=== PATIENT | female | born 1955 | race Hispanic/Latino ===

== ENCOUNTER 2019-08-07 10:47 | Outpatient (CLI) | payer OTHER ==
--- NOTE | 2019-08-07 11:15 | MMO ---
Right Breast MAMMO Unilat Diag [facility] RT+FRANK[facility]. CLINICAL HISTORY: Patient is 64 years old and is seen for diagnostic exam. The patient has no family history of breast cancer. The patient has no personal history of cancer. VIEWS: The views performed were: right craniocaudal with tomosynthesis; right mediolateral oblique with tomosynthesis; and right mediolateral with tomosynthesis. FILMS COMPARED: The present examination has been compared to prior imaging studies performed at [facility] on 07/24/2019, and at [facility] on 09/15/2015, 11/23/2016 and 08/07/2019. This study has been interpreted with the assistance of computer-aided detection. MAMMOGRAM FINDINGS: The breast is heterogeneously dense, which could obscure a lesion on mammography. There is an asymmetry seen in the right breast. This is located at the 12 o'clock position and on additional imaging appears similar to prior mammography. Focused ultrasound is unremarkable as well. There are no suspicious masses, suspicious calcifications, or new areas of architectural distortion. IMPRESSION: THERE IS NO MAMMOGRAPHIC EVIDENCE OF MALIGNANCY. A ROUTINE FOLLOW-UP MAMMOGRAM IN 1 YEAR IS RECOMMENDED. THE RESULTS OF THIS EXAM WERE SENT TO THE PATIENT. ACR BI-RADS Category 2 - Benign finding MAMMOGRAPHY NOTE: 1. A negative mammogram report should not delay a biopsy if a dominant of clinically suspicious mass is present. 2. Approximately 10% to 15% of breast cancers are not detected by mammography. 3. Adenosis and dense breasts may obscure an underlying neoplasm. Reported by: CHACORTA COMER MD Electonically Signed: [id number]
--- NOTE | 2019-08-07 14:14 | ULT ---
FOCUSED ULTRASOUND OF THE RIGHT BREAST: 08/07/2019 HISTORY: Asymmetric density noted at the 12 o'clock position of the right breast. FINDINGS: Focused ultrasound at the 11 o'clock, 12 o'clock, and 1 o'clock positions of the right breast demonst rates no abnormal mass lesion or shadowing. Islands of dense breast tissue are noted, correlating in size and location with the findings on mammography. No concerning findings. IMPRESSION: BI-RADS 2 - benign findings. Recommend annual screening mammography. POS: OFF
== END 2019-08-07 10:48 | disposition home or self-care (01) ==
LOC: BICMAMMO 10:47
PROVIDERS: ATTEND Obstetrics & Gynecology
DX: N63.10 Unspecified lump in the right breast, unspecified quadrant (principal)
CPT/HCPCS: G0279

== ENCOUNTER 2021-02-07 21:39 | Emergency (ER) | payer OTHER ==
[2021-02-07 22:21] LABS: Hemoglobin 13.3 g/dL (12.0-16.0); Mean Corpuscular HGB CONC 33.6 g/dL (32.0-36.0); Mean Corpuscular Hemoglobin 33.2 pg (27.0-31.0); Mean Corpuscular Volume 98.7 fL (78.0-98.0); Mean Platelet Volume 10.6 fL (7.4-10.4); Platelet Count 118 thou/uL (130-400); RBC Distribution Width 11.6 % (11.5-14.5); Red Blood Cell (RBC) Count 4.01 mill/uL (4.20-5.40); White Blood Cell (WBC) Count 6.6 thou/uL (4.8-10.8)
[2021-02-07 22:24] LABS: Fibrinogen 311 mg/dL (253-463)
[2021-02-07 22:25] LABS: PTT 24.7 sec (22.9-36.1); Prothrombin Time 13.3 sec (12.0-14.7)
[2021-02-07] MEDS ORDERED: Morphine 4 MG/ML VIAL ONE (22:25)
[2021-02-07 22:29] LABS: FSP-Qualitative Normal (Normal)
[2021-02-07 22:30] LABS: D-Dimer Test Less than 0.27 *mcg/mL (0.27-0.43); Platelet Count 118 thou/uL (130-400)
[2021-02-07 22:39] LABS: ALT (SGPT) 20 U/L (8-55); AST (SGOT) 27 U/L (5-34); Alkaline Phosphatase 79 U/L (40-110); Anion Gap 13 mmol/L (10-20); BUN (Urea Nitrogen) 11 mg/dL (9.8-20.1); Bilirubin, Total 0.4 mg/dL (0.2-1.2); CK (CPK) 308 U/L (29-168); Calc. Creatinine Clearance 0 mL/min (70-130); Carbon Dioxide 28 mmol/L (23-31); Chloride 106 mmol/L (98-107); Globulin 2.9 g/dL (2.4-3.5); Glucose 106 mg/dL (80-115); Potassium 3.8 mmol/L (3.5-5.1); Protein, Total 6.9 g/dL (5.8-8.1); Sodium 143 mmol/L (136-145)
[2021-02-07 23:14] LABS: #Basophils 0.1 thou/uL (0.0-0.2); #Eosinphils 0.1 thou/uL (0.0-0.7); #Lymphocytes 2.8 thou/uL (1.20-3.40); #Monocytes 0.5 thou/uL (0.11-0.59); #Neutrophils 3.2 thou/uL (1.40-6.50); %Eosinophils 1.4 % (0.0-10.0); %Lymphocytes 41.7 % (21.0-51.0); %Monocytes 7.1 % (0.0-10.0); %Neutrophils 48.8 % (42.0-75.0); Platelet Morphology Comment Appears Decreased; RBC Morphology Normal
== END 2021-02-08 01:30 | disposition home or self-care (01) ==
LOC: ERS 21:39
DX: T63.061A Toxic effect of venom of other North and South American snake, accidental (unintentional), initial encounter (principal); I10 Essential (primary) hypertension
CPT/HCPCS: 36415; 80053; 82550; 85025; 85049; 85300; 85362; 85379; 85384; 85610; 85730; 96374; J2270

== ENCOUNTER 2025-08-19 19:54 | Emergency (ER) | payer MEDICARE, BC ==
[2025-08-19] MEDS ORDERED: Ondansetron PF 4 MG/2 ML Vial ONE ×2 (21:54)
[2025-08-19] MEDS ORDERED: KETAMINE 100 MG/ML (5ML VIAL) ONE (22:41)
== END 2025-08-20 00:08 | disposition home or self-care (01) ==
LOC: ERS 19:54
DX: S52.531A Colles' fracture of right radius, initial encounter for closed fracture (principal); W10.9XXA Fall (on) (from) unspecified stairs and steps, initial encounter
CPT/HCPCS: 25605; 73100; 73110; 96374; 96375; 99152; 99283; J2405; J3010

== ENCOUNTER 2025-09-03 06:41 | Day surgery (SDC) | payer MEDICARE, BC ==
[2025-09-02 10:02] VITALS: BMI 24.3
[2025-09-03] MEDS ORDERED: CEFAZOLIN 2 GM VIAL ONE (07:15)
[2025-09-03 07:52] LABS: Anion Gap 13 mmol/L (10-20); BUN (Urea Nitrogen) 20 mg/dL (9.8-20.1); Calc. Creatinine Clearance 73 mL/min (70-130); Calcium 9.2 mg/dL (7.8-10.44); Carbon Dioxide 24 mmol/L (23-31); Chloride 107 mmol/L (98-107); Glucose 108 mg/dL (80-115); Potassium 4.1 mmol/L (3.5-5.1); Sodium 140 mmol/L (136-145)
[2025-09-03] MEDS ORDERED: Ropivacaine 0.5% HCl/PF (150 MG/30 ML VIAL) ONE (08:11)
[2025-09-03] MEDS ORDERED: Ropivacaine 0.2% HCl/PF 20 ML ONE (08:11)
[2025-09-03] MEDS ORDERED: Lidocaine 1% PF 5 ML VIAL ONE (08:15)
[2025-09-03] MEDS ORDERED: PHENYLEPHRINE-NS 100 MCG/ML 10 ML SYRINGE ONE (08:15)
[2025-09-03] MEDS ORDERED: Ondansetron PF 4 MG/2 ML Vial ONE (08:42)
[2025-09-03] MEDS ORDERED: PROPOFOL 200 MG/20 ML VIAL ONE (08:56)
== END 2025-09-03 12:06 | disposition home or self-care (01) ==
LOC: SDC 06:41
PROVIDERS: ATTEND Orthopaedic Surgery
PROC: 0PSH06Z Reposition Right Radius with Intramedullary Internal Fixation Device, Open Approach (ICD-10-PCS; principal; 2025-09-03)
DX: S52.571A Other intraarticular fracture of lower end of right radius, initial encounter for closed fracture (principal); I10 Essential (primary) hypertension; W10.9XXA Fall (on) (from) unspecified stairs and steps, initial encounter; Z87.891 Personal history of nicotine dependence; Z79.899 Other long term (current) drug therapy
CPT/HCPCS: 25609; 64415; 73100; 80048; 93005; C1713 ×6; J1100; J2250; J2405; J2704; J2795 ×2; J3010; 93010